=== PATIENT | male | born 1945 | race Caucasian/White ===

== ENCOUNTER 2019-10-21 08:17 | Observation (INO) | payer MEDICARE, BC ==
--- OUTSIDE RECORDS SUMMARY | 2019-10-21 08:27 | XMS REPORT | Summary of Care ---
:1945 Author Organization [facility] Address [address] [place] [address] Care Team Providers Name Role Phone Chaka Jain Primary Care Provider Reason for Referral Diagnostic Testing (Routine) Status Reason Specialty Diagnoses / Referred By Referred To Procedures Contact Contact Pending Review Diagnoses Paroxysmal atrial fibrillation (HCC) Chaka Jain Procedures ECHOCARDIOGRAM TTE [address] [place] [address] MRI/CAT/PET Scan (Routine) Status Reason Specialty Diagnoses / Procedures Referred By Contact Referred To Contact Closed Diagnoses Personal history of nicotine dependence Chaka Jain MD Procedures CT CHEST LUNG SCREENING [address] [place] [address] Reason for Visit Reason Comments Breathing Problem SOB for past couple weeks Back Pain Upper back pain chronic issue xrays negative; worse at night Dizziness periodically through out day Encounter Details Date Type Department Care Team Description 10/09/2019 Office Visit [facility] Chaka Jain MD Dyspnea, unspecified type (Primary Dx); Medicine 0 [facility] Personal history of nicotine dependence; [facility] [place] [address] Paroxysmal atrial fibrillation (HCC); [place] [address] High cholesterol [phone] Allergies Active Allergy Reactions Severity Noted Date Comments Rosuvastatin Calcium GI Reaction 10/26/2018 Ct Dye Other High 06/25/2018 allergy Iodine Anaphylaxis 12/16/2010 IONIC Penicillins Hives 09/27/2010 Prednisone GI Reaction 10/26/2018 Statins Musculoskeletal 11/21/2010 documented as of this encounter (statuses as of 10/11/2019) Medications Medication Sig Dispensed Refills Start Date End Date Status pantoprazole (PROTONIX) Take 1 Tab by 180 Tab 1 07/02/2012 Active 40 MG Oral Tab mouth TWO TIMES ECIndications: GERD DAILY BEFORE (gastroesophageal MEALS. reflux disease) Additional Information Patient taking differently: 40 mg Oral DAILY, Reported on 08/17/2015 4:57 PM rivaroxaban Take 20 mg by 0 Active (XARELTO) 20 MG Oral mouth DAILY. Tab flecainide Take 50 mg by 0 Active (TAMBOCOR) 50 MG mouth TWICE DAILY. Oral Tab Nebivolol HCl Take 1 Tab by 0 Active (BYSTOLIC) 10 MG mouth DAILY. Oral Tab amLodipine (NORVASC) Take 2.5 mg by 0 Active 2.5 MG Oral Tab mouth TWICE DAILY. HYDROcodone-acetamin Take 1 Tab by 28 Tab 0 07/16/20 Active ophen (NORCO) 5-325 mouth EVERY SIX 19 MG Oral Tab HOURS NEEDED (back pain). Max Daily Amount: 4 Tabs. tramadol (ULTRAM) 50 Take 1-2 Tabs by 56 Tab 0 07/30/20 Active MG Oral Tab mouth EVERY SIX 19 HOURS NEEDED (back pain). Max Daily Amount: 400 mg. docusate sodium Take 100 mg by 0 Active (COLACE) 100 MG Oral mouth. Cap rifaximin (XIFAXAN) 0 08/06/20 Active 550 MG Oral Tab 19 albuterol HFA Take 2 Puffs by 1 Inhaler 3 10/09/19 Active (VENTOLIN) 108 (90 inhalation EVERY 20 Base) MCG/ACT FOUR HOURS Inhalation Aero Soln NEEDED (dyspnea). azithromycin Take 2 pills on 6 Tab 0 07/16/20 10/09/19 Discontinued (ZITHROMAX Z-ROSI) the first day and (Patient stopped 250 MG Oral Tab 1 pill each day the medication) for 4 days doxycycline Take 100 mg by 20 Tab 0 07/17/20 10/09/19 Discontinued (VIBRAMYCIN) 100 MG mouth TWICE DAILY. (Patient stopped Oral Tab the medication) documented as of this encounter (statuses as of 10/11/2019) Active Problems Problem Noted Date Chronic atrial fibrillation 05/17/2018 Overview: Added automatically from request for surgery [id number] Unspecified essential hypertension GERD (gastroesophageal reflux disease) documented as of this encounter (statuses as of 10/11/2019) Immunizations Name Administration Dates Next Due Influenza (IM) Preservative Free 05/09/2012 Influenza Vaccine 65 Yrs + 05/25/2019 Influenza Vaccine High Dose 07/17/2018 PNEUMOCOCCAL POLYSACCHARIDE VACCINE 10/17/2017, 09/27/2010 Pneumococcal Conjugate(13 Valent) 08/17/2015 TDAP Vaccine 10/07/2019 ZOSTER (SHINGRIX) VACCINE 06/07/2019 ZOSTER (ZOSTAVAX) VACCINE 09/27/2010 documented as of this encounter Social History Tobacco Use Types Packs/Day Years Used Date Former Smoker Smokeless Tobacco: Never Used Alcohol Use Drinks/Week oz/Week Comments Not Currently 15 Standard drinks or equivalent 15.0 Sex Assigned at Date Recorded Not on file documented as of this encounter Last Filed Vital Signs Vital Sign Reading Time Taken Comments Blood Pressure 128/72 10/09/2019 3:59 PM EST Pulse 56 10/09/2019 3:59 PM EST Temperature - - Respiratory Rate - - Oxygen Saturation 97% 10/09/2019 3:59 PM EST Inhaled Oxygen Concentration - - Weight 87.1 kg (192 lb) 10/09/2019 3:59 PM EST Height - - Body Mass Index 27.55 07/16/2019 4:18 PM EST documented in this encounter Patient Instructions Patient InstructionsChaka Jain MD - 10/09/2019 3:30 PM ESTThe cause of your breathing symptoms is not clear. Lets check CT scan of the chest to rule out lung cancer, and try using albuterol inhaler as needed when dyspneic episodes occur at night, or in the day. Get labs done same day. (CBC, lipids ) We may need to repeat pulmonary function tests to explore this further. Try albuterol inhaler when breathing is compromised Another possibility may be acid reflux. Please read the antireflux measures you can take, listed below. I will try and get some information from Dr. Ch to find out about latest cardiac functional assessment. Proceed with getting another echocardiogram with Dr Ch. We'll address the upper back pain once the CT and echo are done. I expect I'll order an MRI. follow up after CT , echo and labs are done. Patient Education Acid Reflux and GERD in Adults Discharge Instructions About this topic GERD stands for gastroesophageal reflux disease. It is sometimes just called reflux. Normally, food goes from the mouth through the food pipe and then into the belly. The food pipe is also called the esophagus. This condition happens when the contents of the belly leak into the food pipe. This leakingcan irritate the food pipe. You may feel a burning pain in your chest called heartburn. You may haveburping, bloating, and belly pain after eating. GERD can be treated in many different ways. Sometimes, doctors use drugs or suggest changes in lifestyle. Other times, diet changes or surgery is needed. What care is needed at home? Ask your doctor what you need to do when you go home. Make sure you ask questions if you do notunderstand what the doctor says. This way you will know what you need to do. Maintain a healthy weight. Avoid stress. Avoid belts and clothes that are too tight. Eat small meals more often. Do not skip meals. Do not eat large meals to make up for missed meals. Avoid eating 2 to 3 hours before bedtime. Do not to lie down for at least 2 hours after eating. Raise the head of your bed 6 to 8 inches (15 to 20 cm). Use wooden blocks under the head of thebed. Just sleeping with your head raised on pillows is not enough. It can cause discomfort and make your signs worse. Do not drink beer, wine, and mixed drinks (alcohol). Do not smoke. What follow-up care is needed? Your doctor may ask you to make visits to the office to check on your progress. Be sure to keep these visits. What drugs may be needed? The doctor may order drugs to: Relieve heartburn Prevent reflux Lessen acid production Heal the esophageal lining Will physical activity be limited? Your physical activities will not be limited. What changes to diet are needed? Limit caffeine intake. Avoid eating oranges, berries, tomatoes, and other foods high in acid. Eat only small amounts of spicy, fatty, and fried foods, or avoid them altogether. Keep track of the foods that cause your signs to become worse. Avoid or limit these food items. What problems could happen? Asthma Precancerous changes in the food pipe Long-term cough Dental problems Higher risk of cancer of the food pipe. This is esophageal cancer. Narrowing of the food pipe. This is a stricture. Open sore in the food pipe. This is an ulcer. When do I need to call the doctor? Pain or a feeling of food getting stuck in your throat Frequent throwing up or throwing up fluid that looks like blood or coffee grounds Pain in the chest or upper part of the belly Very bad heartburn that lasts for a long time Cough, hoarseness of voice, or bad breath Wheezing, shortness of breath or other problems breathing Unintended weight loss or not wanting to eat You are not feeling better in 2 to 3 days or you are feeling worse Teach Back: Helping You Understand The Teach Back Method helps you understand the information we are giving you. The idea is simple. After talking with the staff, tell them in your own words what you were just told. This helps to make sure the staff has covered each thing clearly. It also helps to explain things that may have been a bit confusing. Before going home, make sure you are able to do these: I can tell you about my condition. I can tell you what changes I need to make with my eating habits to ease the reflux. I can tell you what I will do if I am throwing up fluid that looks like blood or coffee grounds. Where can I learn more? [employer] https://familydoctor.org/condition/refluxacid-reflux/ NHS Choices https://www.nhs.uk/conditions/ottdpaszi-jnt-tuvi-reflux/ Last Reviewed Date 2018-10-02 Consumer Information Use and Disclaimer This information is not specific medical advice and does not replace information you receive from your health care provider. This is only a brief summary of general information. It does NOT include allinformation about conditions, illnesses, injuries, tests, procedures, treatments, therapies, discharge instructions or life-style choices that may apply to you. You must talk with your health care provider for complete information about your health and treatment options. This information should not beused to decide whether or not to accept your health care provider?s advice, instructions or recommendations. Only your health care provider has the knowledge and training to provide advice that is right for you. Copyright Copyright 2019 [employer] and its affiliates and/or licensors. All rights reserved. documented in this encounter Progress Notes Chaka Jain MD - 10/09/2019 3:30 PM EST PATIENT: Omar Freeman : 1945 DATE OF SERVICE: 10/09/2019 CHIEF COMPLAINT: Chief Complaint Patient presents with ? Breathing Problem SOB for past couple weeks ? Back Pain Upper back pain chronic issue xrays negative; worse at night ? Dizziness periodically through out day Subjective HISTORY OF PRESENT ILLNESS: Omar Freeman is a 74-y.o. male. HPI Complains of paroxysms of dyspnea that occur at night when he is lying down. Not consistent every night. Not occurring with exertion or at other times during the day. Follows with Dr. Ch for cardiology switching to nebivolol from nadolol helped a little but symptoms are bad now. Does not haveorthopnea or ankle edema. We reviewed outside records where he had a prior echocardiogram in 2011 with [facility] showing mild concentric LVH, global LV wall motion and contractility within normal limits with ejection fraction 55-60%, trace of aortic regurgitation, mild mitral regurgitation andmild tricuspid regurgitation. We agreed that perhaps he needs an updated study and we will ask Dr. Ch for this. States he recently had a CT of the abdomen and pelvis ordered by Dr. Franchesca Sawyer to evaluate right lower quadrant pain, and the CT showed no evidence of acute abdominal or pelvic abnormality. There was diverticulosis and evidence of prior lumbar spine surgery with posterior spinal fusion at L4-5 level with pedicle screws. Reviewed a prior upper GI study ordered by gastroenterology nurse practitioner. Kyaw done in July 2018 showing a large amount of free gastroesophageal reflux. Has been a previous smoker, and states he had normal PFT's done several years ago. Prior low-dose CTof the lungs done for lung cancer screening in November 2015 ordered by his prior primary care doctor Lloyd Ford MD showed a 2 mm calcification in the periphery of the lingula. Follow-up studies were never done and patient states he was never told to have a follow-up study Also complains of an unusual type of upper back pain. Not sure if it is truly mechanical or not. Seems to be noticeable when he is dyspneic. He is worried about cancer. X-rays of the thoracic spine done in March 2019 showed no evidence of fracture or subluxation but some endplate changes seen without evidence of compression deformity. Past Medical History: Diagnosis Date ? Adenomatous polyp of colon 2011 3 years. 205 10 year but 2017 3 years? Ankle fracture ? Chronic sore throat Susanna ? CTS (carpal tunnel syndrome) ? Fatty liver ultrasound [facility] ? GERD (gastroesophageal reflux disease) 2010 EGD negative ? Headache(784.0) tension per Dr Michael ? Hiatal hernia ? IBS (irritable bowel syndrome) ? Lumbar herniated disc s/p hemilaminectomy right L4-5 2005 and lumbar fusion 2007 ? Mast cell disease, systemic ??? no more .sx ? Migraine Dr Holm ? PAF (paroxysmal atrial fibrillation) (HCC) ? PVC's (premature ventricular contractions) improved with K and BP meds ? 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 Unspecified essential hypertension Family History Problem Relation Age of Onset ? Colon Cancer Father ? Heart Mother 60s Current Outpatient Medications Medication Sig ? amLodipine (NORVASC) 2.5 MG Oral Tab Take 2.5 mg by mouth TWICE DAILY. ? docusate sodium (COLACE) 100 MG Oral Cap Take 100 mg by mouth. ? flecainide (TAMBOCOR) 50 MG Oral Tab Take 50 mg by mouth TWICE DAILY. ? HYDROcodone-acetaminophen (NORCO) 5-325 MG Oral Tab Take 1 Tab by mouth EVERY SIX HOURS NEEDED (back pain). Max Daily Amount: 4 Tabs. ? Nebivolol HCl (BYSTOLIC) 10 MG Oral Tab Take 1 Tab by mouth DAILY. ? pantoprazole (PROTONIX) 40 MG Oral Tab EC Take 1 Tab by mouth TWO TIMES DAILY BEFORE MEALS.(Patient taking differently: Take 40 mg by mouth DAILY. ) ? rifaximin (XIFAXAN) 550 MG Oral Tab ? rivaroxaban (XARELTO) 20 MG Oral Tab Take 20 mg by mouth DAILY. ? tramadol (ULTRAM) 50 MG Oral Tab Take 1-2 Tabs by mouth EVERY SIX HOURS NEEDED (back pain). Max Daily Amount: 400 mg. No current facility-administered medications for this visit. Allergies Allergen Reactions ? Ct Dye Other allergy ? Crestor [Rosuvastatin Calcium] GI Reaction ? Iodine Anaphylaxis IONIC ? Pcn [Penicillins] Hives ? Prednisone GI Reaction ? Statins Musculoskeletal Social History Socioeconomic History ? Marital status: Spouse name: Not on file ? Number of children: Not on file ? Years of education: Not on file ? Highest education level: Not on file Occupational History ? Not on file Social Needs ? Financial resource strain: Not on file ? Food insecurity Worry: Not on file Inability: Not on file ? Transportation needs Medical: Not on file Non-medical: Not on file Tobacco Use ? Smoking status: Former Smoker ? Smokeless tobacco: Never Used Substance and Sexual Activity ? Alcohol use: Not Currently Alcohol/week: 15.0 standard drinks Types: 15 Standard drinks or equivalent per week ? Drug use: Not on file ? Sexual activity: Not on file Lifestyle ? Physical activity Days per week: Not on file Minutes per session: Not on file ? Stress: Not on file Relationships ? Social connections Talks on phone: Not on file Gets together: Not on file Attends gnosticist service: Not on file Active member of club or organization: Not on file Attends meetings of clubs or organizations: Not on file Relationship status: Not on file ? Intimate partner violence Fear of current or ex partner: Not on file Emotionally abused: Not on file Physically abused: Not on file Forced sexual activity: Not on file Other Topics Concern ? 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 REVIEW OF SYSTEMS: Review of Systems Respiratory: Positive for shortness of breath. Cardiovascular: Negative for chest pain and palpitations. Gastrointestinal: Negative for abdominal pain. Genitourinary: Negative for dysuria. Musculoskeletal: Positive for back pain. Objective PHYSICAL EXAM: VITALS: BP 128/72 (BP Location: Left arm, Patient Position: Sitting) | Pulse 56 | Wt 192 lb (87.1kg) | SpO2 97% | BMI 27.55 kg/m Body mass index is 27.55 kg/m. Physical Exam Alert, oriented, in no acute distress. Vitals as above. HEENT: Normocephalic, atraumatic. WAI, EOMI. Mouth and ears unremarkable. Neck: No palpable lymphadenopathy in the submandibular, submental, anterior cervical, posterior cervical, or occipital chains, nor in the supraclavicular spaces. No JVD, thyromegaly. LUNGS: clear. HEART: Regular rate and rhythm. ABDOMEN: positive bowel sounds, soft, nontender, no hepatosplenomegaly, masses or bruits. EXTREMITIES: no cyanosis, clubbing, or edema. ASSESSMENT / IMPRESSION: ICD-9-CM ICD-10-CM 1. Dyspnea, unspecified type? unclear cause. Possibly paroxysmal atrial fib, or manifestationof sleep apnea, or gastroesophageal reflux 786.09 R06.00 CBC WITH DIFFERENTIAL 2. Personal history of nicotine dependence?check another low-dose CT scan of the chest Z87.891Z87.891 CT CHEST LUNG SCREENING 3. Paroxysmal atrial fibrillation (HCC)?recheck echocardiogram 427.31 I48.0 ECHOCARDIOGRAM TTE LIPID PROFILE 4. High cholesterol - The patient is asked to improve diet and exercise patterns to aid in medical management of this. 272.0 E78.00 LIPID PROFILE 5. History of gastroesophageal reflux on prior upper GI study? proceed with antireflux measures?continue pantoprazole 6. Upper back pain?unclear etiology. May need imaging of the thoracic spine with MRI butlets see what the CT of the chest shows first. Patient Instructions The cause of your breathing symptoms is not clear. Lets check CT scan of the chest to rule out lung cancer, and try using albuterol inhaler as needed when dyspneic episodes occur at night, or in the day. Get labs done same day. (CBC, lipids ) We may need to repeat pulmonary function tests to explore this further. Try albuterol inhaler when breathing is compromised Another possibility may be acid reflux. Please read the antireflux measures you can take, listed below. I will try and get some information from Dr. Ch to find out about latest cardiac functional assessment. Proceed with getting another echocardiogram with Dr Ch. We'll address the upper back pain once the CT and echo are done. I expect I'll order an MRI. follow up after CT , echo and labs are done. Patient Education Acid Reflux and GERD in Adults Discharge Instructions About this topic GERD stands for gastroesophageal reflux disease. It is sometimes just called reflux. Normally, food goes from the mouth through the food pipe and then into the belly. The food pipe is also called the esophagus. This condition happens when the contents of the belly leak into the food pipe. This leakingcan irritate the food pipe. You may feel a burning pain in your chest called heartburn. You may haveburping, bloating, and belly pain after eating. GERD can be treated in many different ways. Sometimes, doctors use drugs or suggest changes in lifestyle. Other times, diet changes or surgery is needed. What care is needed at home? Ask your doctor what you need to do when you go home. Make sure you ask questions if you do notunderstand what the doctor says. This way you will know what you need to do. Maintain a healthy weight. Avoid stress. Avoid belts and clothes that are too tight. Eat small meals more often. Do not skip meals. Do not eat large meals to make up for missed meals. Avoid eating 2 to 3 hours before bedtime. Do not to lie down for at least 2 hours after eating. Raise the head of your bed 6 to 8 inches (15 to 20 cm). Use wooden blocks under the head of thebed. Just sleeping with your head raised on pillows is not enough. It can cause discomfort and make your signs worse. Do not drink beer, wine, and mixed drinks (alcohol). Do not smoke. What follow-up care is needed? Your doctor may ask you to make visits to the office to check on your progress. Be sure to keep these visits. What drugs may be needed? The doctor may order drugs to: Relieve heartburn Prevent reflux Lessen acid production Heal the esophageal lining Will physical activity be limited? Your physical activities will not be limited. What changes to diet are needed? Limit caffeine intake. Avoid eating oranges, berries, tomatoes, and other foods high in acid. Eat only small amounts of spicy, fatty, and fried foods, or avoid them altogether. Keep track of the foods that cause your signs to become worse. Avoid or limit these food items. What problems could happen? Asthma Precancerous changes in the food pipe Long-term cough Dental problems Higher risk of cancer of the food pipe. This is esophageal cancer. Narrowing of the food pipe. This is a stricture. Open sore in the food pipe. This is an ulcer. When do I need to call the doctor? Pain or a feeling of food getting stuck in your throat Frequent throwing up or throwing up fluid that looks like blood or coffee grounds Pain in the chest or upper part of the belly Very bad heartburn that lasts for a long time Cough, hoarseness of voice, or bad breath Wheezing, shortness of breath or other problems breathing Unintended weight loss or not wanting to eat You are not feeling better in 2 to 3 days or you are feeling worse Teach Back: Helping You Understand The Teach Back Method helps you understand the information we are giving you. The idea is simple. After talking with the staff, tell them in your own words what you were just told. This helps to make sure the staff has covered each thing clearly. It also helps to explain things that may have been a bit confusing. Before going home, make sure you are able to do these: I can tell you about my condition. I can tell you what changes I need to make with my eating habits to ease the reflux. I can tell you what I will do if I am throwing up fluid that looks like blood or coffee grounds. Where can I learn more? [employer] https://familydoctor.org/condition/refluxacid-reflux/ NHS Choices https://www.nhs.uk/conditions/drmhzkujt-rss-qnjx-reflux/ Last Reviewed Date 2018-10-02 Consumer Information Use and Disclaimer This information is not specific medical advice and does not replace information you receive from your health care provider. This is only a brief summary of general information. It does NOT include allinformation about conditions, illnesses, injuries, tests, procedures, treatments, therapies, discharge instructions or life-style choices that may apply to you. You must talk with your health care provider for complete information about your health and treatment options. This information should not beused to decide whether or not to accept your health care provider?s advice, instructions or recommendations. Only your health care provider has the knowledge and training to provide advice that is right for you. Copyright Copyright 2019 [employer] and its affiliates and/or licensors. All rights reserved. CC: Dr. Ch, Dr. Callaway author: Chaka Jain MD 10/09/2019 16:26 documented in this encounter Plan of Treatment Name Type Priority Associated Diagnoses Date/Time CT CHEST LUNG SCREENING Imaging Routine Personal history of 10/10/2019 10: 19 AM nicotine dependence EST Name Type Priority Associated Diagnoses Order Schedule CT CHEST LUNG SCREENING Imaging Routine Personal history of Expected: nicotine dependence 10/09/2019, Expires: 10/08/2020 ECHOCARDIOGRAM TTE CV Lab Routine Paroxysmal atrial Expected: fibrillation (HCC) 10/09/2019, Expires: 11/12/2020 Health Maintenance Due Date Last Done Comments MEDICARE ANNUAL WELLNESS VISIT 1945 HIV SCREENING 1961 ZOSTER IMMUNIZATION SERIES (3 08/02/2019 06/07/2019, of 3) 09/27/2010 DEPRESSION SCREENING 10/16/2019 10/16/2018 Colonoscopy 10/17/2019 10/17/2016, 12/06/2010 FALL RISK ASSESSMENT 10/17/2019 10/17/2018, 10/17/2018 LIPID DISORDER SCREENING 10/10/2020 10/10/2019, 04/03/2019 DTaP/Tdap/Td Vaccines (2 - 10/07/2029 10/07/2019 Tdap) PNEUMOCOCCAL 65+YRS Completed 10/17/2017, 08/17/2015, 09/27/2010 AAA SCREENING/SURVEILLANCE Completed 08/30/2018, 12/16/2010 INFLUENZA VACCINE Completed 05/25/2019, 07/17/2018, 05/09/2012 HEPATITIS A IMMUNIZATION Aged Out No longer eligible based SERIES on patient's age to complete this topic HPV IMMUNIZATION SERIES Aged Out No longer eligible based on patient's age to complete this topic MENINGOCOCCAL VACCINE IMM Aged Out No longer eligible based on patient's age to complete this topic documented as of this encounter Goals Goal Patient Goal Associated Recent Patient-Stated? Author Type Problems Progress Blood Pressure Blood Pressure 128/72 No [place], < 150/90 (10/09/2019 DANIEL Infante 3:59 PM EST) Note: This is an individualized treatment (blood pressure) goal for Omar Ami Freeman: Displayed above (on the left) is your goal for blood pressure control. Your most recent blood pressure is also shown above, on the right. You should try to achieve blood pressures that are lower than your goal listed above (on the left). Take all prescribed medications as Self-management Arelis Crawford FNP directed Note: This is an individualized self-management goal for Omar Ami Lydia: Please take all prescribed medications as directed. 1. Do not skip doses. If you cannot afford your medications, talk with your doctor. 2. Use a pill reminder system such as a pill box if needed. Your pharmacist can help you with this. 3. Contact your Pharmacy 5 days before your medication runs out. If you cannot take your medications for any reasons, talk with your doctor. 4. Please bring all of your medication bottles and inhalers (or a list of all your medications/inhalers) with you to every visit. Potential barriers to meeting all of your care plan goals will continue to be addressed on an ongoing basis. documented as of this encounter Procedures Procedure Name Priority Date/Time Associated Diagnosis Comments CBC WITH DIFFERENTIAL Routine 10/10/2019 10:07 Dyspnea, unspecified Results for this AM EST type procedure are in the results section. documented in this encounter Results LIPID PROFILE (10/10/2019 10:07 AM EST) Cholesterol 186 <200 mg/dl [facility] HDL Cholesterol 32 (L) >40 mg/dl [facility] Triglycerides 112 <150 mg/dl [facility] LDL Cholesterol 132 (H) <100 MG/DL [facility] Cholesterol / HDL Ratio 5.8 RATIO [facility] LDL / HDL Ratio 4.1 [facility] Non-HDL Cholesterol 154 (H) 0 - 130 MG/DL [facility] Patient Fasting: Yes [facility] Specimen Blood - Blood specimen (specimen) Performing Organization Address City/State/Zipcode Phone Number [facility] [address] [place] [address] [phone] CBC WITH DIFFERENTIAL (10/10/2019 10:07 AM EST) WBC Count 6.15 4.23 - 9.07 K/uL [facility] RBC Count 4.40 4.30 - 5.89 M/UL [facility] Hemoglobin 13.8 13.7 - 17.5 g/dL [facility] Hematocrit 41.9 40.1 - 51.0 % [facility] MCV 95.2 (H) 79.0 - 92.2 FL [facility] MCH 31.4 25.7 - 32.2 PG [facility] MCHC 32.9 32.3 - 36.5 g/dL [facility] Platelet Count 236 163 - 337 K/uL [facility] MPV 10.7 9.4 - 12.4 FL [facility] RDW 12.3 11.6 - 14.4 % [facility] Neutrophil % 45.4 34.0 - 67.9 % [facility] Lymphocyte % 39.7 21.8 - 53.1 % [facility] Monocyte % 8.8 5.3 - 12.2 % [facility] Eosinophil % 4.7 0.8 - 7.0 % [facility] Basophil % 1.1 0.2 - 1.2 % [facility] nRBC % 0.0 0.0 - 0.2 % [facility] Neutrophil # 2.79 1.78 - 5.38 K/UL [facility] Lymphocyte # 2.44 1.32 - 3.57 K/UL [facility] Monocyte # 0.54 0.30 - 0.82 K/UL [facility] Eosinophil # 0.29 0.04 - 0.54 K/UL [facility] Basophil # 0.07 0.01 - 0.08 K/UL [facility] Immature Gran % 0.3 0.0 - 0.4 % [facility] Immature Gran # 0.02 0.00 - 0.03 K/uL [facility] NRBC # 0.00 0.00 - 0.12 K/uL [facility] Specimen Blood - Blood specimen (specimen) Performing Organization Address City/State[facility] Phone Number [facility] [address] [place] [id number] documented in this encounter Visit Diagnoses Diagnosis Personal history of nicotine dependence Dyspnea, unspecified type Paroxysmal atrial fibrillation (HCC) Atrial fibrillation High cholesterol Pure hypercholesterolemia documented in this encounter documented as of this encounter"
--- NOTE | 2019-10-21 08:44 | ED ---
Shortness of Breath - HPI Summary HPI Summary: Patient is a 74 y/o M presenting to the ED for a chief complaint of shortness of breath and left-sided back pain for the last few weeks. He notes a warm sensation in his face and lightheadedness before having a feeling that he will have a syncopal episode. No aggravating or alleviating factors are reported. Patient states the back pain initially began in March 2019 and had imaging performed that showed arthritis. Recently, patient also notes having an abdominal CT for abdominal pain. He has been seen at [facility] and told to be seen at [facility]. Patient states he has had an extensive cardiac workup, including an echocardiogram and a chest CT with Dr. Ch. He reports having a syncopal episode during the echocardiogram. PMHx is significant for IBS and atrial fibrillation for which he takes Xarelto. PSHx is significant for spinal fusion. - History of Current Complaint Chief Complaint: EDShortnessOfBreath Time Seen by Provider: 10/21/19 08:29 Hx Obtained From: Patient Onset/Duration: Sudden Onset, Still Present Timing: Constant Current Severity: Moderate Dyspnea At: Rest Aggravating Factors: Nothing Alleviating Factors: Nothing - Allergy/Home Medications Allergies/Adverse Reactions: Allergies Allergy/AdvReac Type Severity Reaction Status Date / Time Iodinated Contrast Media Allergy Anaphylatic Verified 10/21/19 08:49 Shock iodine Allergy Anaphylatic Verified 10/21/19 08:49 Shock Penicillins Allergy Anaphylatic Verified 10/21/19 08:49 Shock Home Medications: Home Medications Amlodipine Besylate [Amlodipine 2.5 mg tab] 2.5 mg PO BID 09/23/19 [History Confirmed 10/21/19] Dicyclomine CAP* [Bentyl CAP*] 10 mg PO Q8H PRN 09/23/19 [History Confirmed ] Flecainide TAB* [Tambocor TAB*] 50 mg PO BID 09/23/19 [History Confirmed ] Nebivolol HCl [Bystolic] 10 mg PO DAILY 09/23/19 [History Confirmed 10/21/19] Pantoprazole TAB * [Protonix TAB*] 40 mg PO DAILY 09/23/19 [History Confirmed ] Rivaroxaban TAB(*) [Xarelto 20 mg] 20 mg PO DAILY 09/23/19 [History Confirmed ] traMADol TAB* [Ultram*] 50 mg PO Q6HR PRN 09/23/19 [History Confirmed 10/21/19] PMH/Surg Hx/FS Hx/Imm Hx Previously Healthy: Yes Endocrine/Hematology History: Denies: Hx Diabetes Cardiovascular History: Reports: Hx Atrial Fibrillation, Hx Hypercholesterolemia , Hx Hypertension - ON MEDS, Other Cardiovascular Problems/Disorders - NEG CARDIAC CATH Denies: Hx Pacemaker/ICD Respiratory History: Reports: Hx Chronic Obstructive Pulmonary Disease (COPD) Denies: Other Respiratory Problems/Disorders GI History: Reports: Hx Gastroesophageal Reflux Disease, Hx Hiatal Hernia, Hx Irritable Bowel, Other GI Disorders History: Denies: Hx Renal Disease Musculoskeletal History: Reports: Hx Arthritis - KNEES, Other Musculoskeletal History Sensory History: Reports: Hx Cataracts - RIGHT EYE, Hx Contacts or Glasses - CONTACTS Denies: Hx Legally Blind, Hx Deafness, Hx Hearing Aid Opthamlomology History: Reports: Hx Cataracts - RIGHT EYE, Hx Contacts or Glasses - CONTACTS Denies: Hx Legally Blind EENT History: Denies: Hx Deafness Neurological History: Reports: Hx Headaches - SEE NEUROLOGIST Psychiatric History: Denies: Hx Panic Disorder - Surgical History Surgical History: Yes Surgery Procedure, Year, and Place: back fusion;, 2007, [place]. back surgery - L4-L5 -W/RODs;. knees- BILATERAL - MCL, 2009, 2010. left carpal tunnel,2004 , [place]. Lt ULNAR RELEASE/Lt ELBOW; 2006, [facility]. inguinal hernia syr roberta 1970es. [facility] ING HERNIA, 1966. Hx Anesthesia Reactions: No Infectious Disease History: No Infectious Disease History: Denies: Traveled Outside the [place] in Last 30 Days - Family History Known Family History: Negative: Cardiac Disease - Social History Occupation: Retired Lives: With Family Alcohol Use: Daily Alcohol Amount: 2-3 PER DAY Hx Substance Use: No Substance Use Type: Reports: None Hx Tobacco Use: Yes Smoking Status (MU): Former Smoker Type: Cigarettes Amount Used/How Often: PACK A DAY Have You Smoked in the Last Year: No Review of Systems Positive: Shortness Of Breath Positive: Myalgia - Left-sided back Neurological/Mental Status: Other - Positive lightheadedness and pre-syncope Positive: Syncope - Resolved, during an echocardiogram All Other Systems Reviewed And Are Negative: Yes Physical Exam - Summary Physical Exam Summary: Constitutional: Well-developed, Well-nourished, Alert. (-) Distressed Skin: Warm, Dry HENT: Normocephalic; Atraumatic Eyes: Conjunctiva normal Neck: Musculoskeletal ROM normal neck. (-) JVD, (-) Stridor, (-) Nuchal rigidity Cardio: Rhythm regular, rate normal, Heart sounds normal; Intact distal pulses; Radial pulses are 2+ and symmetric. (-) Murmur Pulmonary/Chest wall: (-) Respiratory distress, (-) Wheezes, (-) Rales. Tachypnea Abd: Soft, (-) tenderness, (-) Distension, (-) Guarding, (-) Rebound Musculoskeletal: (-) Edema Lymph: (-) Cervical adenopathy Neuro: Alert, Oriented x3 Psych: Mood and affect Normal Triage Information Reviewed: Yes Vital Signs On Initial Exam: Initial Vitals Temp Pulse Resp BP Pulse Ox 97.2 F 65 19 148/77 100 10/21/19 08:26 10/21/19 08:26 10/21/19 08:26 10/21/19 08:26 10/21/19 08:26 Vital Signs Reviewed: Yes Procedures - Sedation Patient Received Moderate/Deep Sedation with Procedure: No Diagnostics - Vital Signs Vital Signs Temp Pulse Resp BP Pulse Ox 10/21/19 08:26 97.2 F 65 19 148/77 100 - Laboratory Result Diagrams: 10/21/19 08:36 10/21/19 08:36 Lab Statement: Any lab studies that have been ordered have been reviewed, and results considered in the medical decision making process. - Radiology Chest X-ray Radiology Interpretation Completed By: Radiologist Summary of Radiographic Findings: Chest X-ray IMPRESSION: No active cardiopulmonary disease is noted. Reviewed by Dr. Altman. - EKG 08:21 Cardiac Rate: NL - 73 BPM EKG Rhythm: Sinus Rhythm ST Segment: Normal Ectopy: None EKG Comparison: No Significant Change - From prior Summary of EKG Findings: An EKG at 08:21 reveals normal sinus rhythm with 73 BPM , RBBB, left fascicular block, nml axis, nml intervals. No STEMI. No acute changes. Compared to a prior EKG, no significant change. ED physician has reviewed and interpreted this EKG. Re-Evaluation - Re-Evaluation First Eval Re-Evaluation Time: 09:13 Change: Unchanged Comment: At 09:13, patient denies a history of blood clots. Course/Dx - Course Course Of Treatment: 74 y/o male p/w progressive YUN and syncopal events. - patient reports feeling unwell, denies chest pain. Chest x-ray without acute abnormality. EKG unremarkable. Troponin negative. D-dimer normal, well's low risk. - Syncope. DDx: Seizure: no witnessed seizure activity, incontinence or h/o seizures to suggest seizure today. Hypoxia and hypoglycemia less likely in this patient with normal sats and BG. Cardiac issue: electrical ( dysarrhythmias, brugada, WPW, long QT). No man EKG. Troponin negative, recent echo Dr. Ch's office. I still think patient will benefit from telemetry and further workup. Vessels: PE, dissection, AAA. Clinical picture inconsistent , no abd pain, no pulsatile mass, symmetric pulses, PE: d dimer normal. Volume issue: dehydration from vomiting/diarrhea/decreased PO, sepsis, GI bleed, ruptured ectopic or bleeding AAA. No signs of recent illness to suggest infection, no e/o anemia by history or PE. Neuro: No DOUGLAS, no personal or family h/o cerebral aneurysm, nml neuro exam but does report some dizziness on standing. Also: vasovagal, drugs/meds, autonomic insufficiency - Diagnoses Provider Diagnoses: Shortness of breath, Near syncope - Physician Notifications Discussed Care of Patient With: Cristal Fine - At 09:15, Dr. Cristal Fine will send someone down to assess the patient. He will likely be discharged and have an appointment set up with a breaker unit assembler. At 10:20, Dr. Cristal Fine reviewed the patients case and agrees to admit the [place] [facility] [place] diagnosis of shortness of breath and near syncope. Time Discussed With Above Provider: 09:15 Instructed by Provider To: Admit As Inpatient Discharge ED - Sign-Out/Discharge Documenting (check all that apply): Patient Departure - Admit - Discharge Plan Condition: Stable Disposition: ADMITTED TO [facility] - Billing Disposition and Condition Condition: STABLE Disposition: Admitted to [facility] - Attestation Statements Document Initiated by Scribe: Yes Documenting Scribe: Angela Mcallister Provider For Whom Scribe is Documenting (Include Credential): Viral Altman MD Scribe Attestation: I, Angela Mcallister, scribed for Viral Altman MD on 10/21/19 at 1821. Scribe Documentation Reviewed: Yes Provider Attestation: The documentation as recorded by the Angela kulkarni accurately reflects the service I personally performed and the decisions made by me, Viral Altman MD Status of Scribe Document: Viewed
[2019-10-21 08:47] LABS: ABS Basophils 0.1 10^3/ul (0-0.2); ABS Eosinophils 0.2 10^3/ul (0-0.6); ABS Lymphocytes 1.4 10^3/ul (1.0-4.8); ABS Monocytes 0.5 10^3/ul (0-0.8); ABS Neutrophils 4.9 10^3/ul (1.5-7.7); Eosinophil % 2.5 %; Hematocrit 40 % (42-52); Hemoglobin 13.8 g/dL (14.0-18.0); Lymphocyte % 19.5 %; Mean Corpuscular HGB Conc 34 g/dL (31-36); Mean Corpuscular Hemoglobin 32 pg (27-31); Mean Corpuscular Volume 93 fL (80-94); Mean Platelet Volume 8.4 fL (7.4-10.4); Nucleated Red Blood Cells % 0.1; Platelet Count 202 10^3/uL (150-450); Red Blood Count 4.34 10^6 /uL (4.18-5.48); Red Cell Distribution Width 13 % (10-15)
[2019-10-21 09:10] LABS: Albumin/Globulin Ratio 1.5 (1-3); BUN/Creatinine Ratio 15.7 (8-20); Calcium 9.3 mg/dL (8.6-10.3); EGFR African American 75.4 (>60); EGFR Non-African American 62.3 (>60); Globulin 2.7 g/dL (2-4); Potassium 3.9 mmol/L (3.5-5.0); Total Bilirubin 0.7 mg/dL (0.2-1.0); Total Protein 6.7 g/dL (6.4-8.9)
[2019-10-21] MEDS ORDERED: Nitroglycerin TAB 0.4 MG* 0.4 MG TAB SL PRN (10:15)
[2019-10-21] MEDS ORDERED: Ondansetron INJ* 2 MG/ML VIAL IV PRN (10:15)
[2019-10-21] MEDS ORDERED: Dicyclomine CAP* 10 MG PO PRN (10:20)
[2019-10-21 10:23] LABS: TSH (Thyroid Stimulating Horm) 3.06 mcIU/mL (0.34-5.60)
[2019-10-21] MEDS: traMADol TAB* 50 MG PO PRN (11:48)
[2019-10-21] MEDS: NS 0.9% 1000 ML** 1,000 ML IV SCH ×2 (11:48→19:45)
--- NOTE | 2019-10-21 13:19 | HP ---
CC: Dr. Chaka Jain; Dr. Isabel Ch * ADMISSION HISTORY AND PHYSICAL: DATE OF ADMISSION: 10/21/19 PRIMARY CARE PROVIDER: Dr. Chaka Jain. MY ATTENDING WHILE IN THE HOSPITAL: Dr. Cristal Fine.* (DICTATED BY DAVID JIMENEZ) OUTPATIENT LOG SKIDDER: Dr. Isabel Ch. CHIEF COMPLAINT: Shortness of breath intermittently times several weeks. HISTORY OF PRESENT ILLNESS: Mr. Freeman is a 74-year-old male with past medical history significant for paroxysmal atrial fibrillation, reflux, hypertension, low back pain, who presented to the emergency department after several weeks of intermittent shortness of breath, not brought on by exertion, not occurring at predictable time of day, not associated with meals, not associated with certain body positions, it comes and goes, but has been getting progressively worse. The patient does walk and this does not make his shortness of breath worse, but he is quite limited by his back pain, so does not exercise very frequently or very strenuously. The patient has no associated chest pain, but has had at least 2 episodes of syncope, most recent one being this morning where he feels the sensation going up from his chest into his neck and then he passes out. The patient denies any palpitations or overt chest pain with this and he does not feel particularly that his shortness of breath gets worse when these episodes occur. The patient denies nausea or vomiting with these episodes. The patient had an episode of severe, what he described, as reflux several days ago, which responded eventually to high doses of pantoprazole and Gaviscon. The patient has had a previous chest CT, which was negative except for small pulmonary nodules. The patient has been having dizziness, which he does not describe as occurring when he stands up, mainly just a general ooziness what he would describe as ataxia, even this is particularly worse with looking to his right without overt vertigo and has been getting worse for several weeks as well. The patient also has a headache that has become relatively chronic. He does not take Tylenol for it and when he takes tramadol for it it has not particularly helped, nothing makes this particularly better or worse. There is no photophobia, no phonophobia. He states it is often on the top of his head, but occasionally is around his eyes, is not associated with nausea and vomiting. He did have a history of chronic headaches that was eventually attributed to poor exhaust on a heater in his office and resolved after he was not exposed to this anymore, but during the evaluation of that he did have an MRI of the brain, which showed a small cavernous angioma and scattered small foci of elevated T2 and FLAIR signal and periventricular and subcortical white matter. The patient has had no other weakness or focal deficits. The patient does have a history of vertigo according to the MRI of the brain from 2006, which was also negative. The patient denies any fevers or chills. The patient states he has a stress test, but not recentlyp[atient also had a cardiac catheterization in 2010, which was relatively normal as well. The patient has recent abdominal and pelvis CT which was negative. The patient complains of pain in his back, which is aching generally on the right side and at the lower ribs, worse with movement without any correlating symptoms on imaging either on his chest CT or his abdomen and pelvis CT or on plain films from his primary. The patient does not feel dehydrated. The patient has no history of shingles and has been vaccinated against this. The patient has had in the past occasional chest pain for which he has had a stress test, but again not recently. The patient again does not have chest pain associated with his shortness of breath. In the emergency department, the patient has relatively normal lab work showing only slight anemia, negative D-dimer. The patient has no recent immobilization or long car trips. Nonischemic EKG, normal 2 views chest x-ray, but due to concern for the patient's significant dyspnea as well as various other complaints. We were asked to evaluate the patient for admission to the hospital. PAST MEDICAL HISTORY: Hypertension, paroxysmal atrial fibrillation, GERD, lower back pain, history of systemic mastocytosis resolved, IBS. PAST SURGICAL HISTORY: Lumbar diskectomy in 2005, lumbar fusion in 2007, skin cancer removal in 2016. MEDICATIONS: 1. Pantoprazole 40 mg p.o. daily. 2. Amlodipine 2.5 mg p.o. b.i.d. 3. Bystolic 10 mg p.o. daily. 4. Xarelto 20 mg p.o. daily. 5. Dicyclomine 10 mg p.o. q.8 hours as needed. 6. Tramadol 50 mg p.o. q.6 hours as needed. 7. Flecainide 50 mg p.o. b.i.d. ALLERGIES: IODINATED CONTRAST MEDIA, PENICILLINS. Of note, the patient's PENICILLIN allergy is based on report of reaction when he was 9 years old. FAMILY HISTORY: The patient's mother of a CVA, from AFib. The patient's father of questionable metastatic squamous cell cancer. The patient has a sister who has Parkinson's and 2 other siblings were healthy. SOCIAL HISTORY: The patient smoked for approximately 50 years, quitting 3 years ago when he was 71 years old. The patient drinks occasional alcohol, but this is very infrequent as it does tend to provoke his AFib. The patient denies illicit drug use. 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 The patient is and has 4 children. The patient's surrogate decision maker will be his , Maylin Freeman. REVIEW OF SYSTEMS: A 10-point review of systems was reviewed and is negative, except as above in the HPI. PHYSICAL EXAMINATION GENERAL: The patient is a 74-year-old male who appears younger than stated age and sitting in the bed with slightly increased work of breathing. VITAL SIGNS: At the time of evaluation, temperature 97.2, pulse rate 60, respiratory rate 23, oxygen saturation 99% on room air, blood pressure 138/84. HEENT: Head: Normocephalic, atraumatic. Sclerae anicteric. No conjunctival injection. Nasal mucosa moist. Oral mucosa moist. No pharyngeal erythema, discharge, or exudate. NECK: Supple, nontender. No lymphadenopathy. No carotid bruits auscultated. No JVD. RESPIRATORY: Clear to auscultation bilaterally. No wheezes, rales, or rhonchi. Good air exchange bilaterally. CARDIAC: Regular rate and rhythm. No clicks, murmurs, gallops, or rubs. Pulses 2+ in the dorsalis pedis, posterior tibialis and radial areas. ABDOMEN: Soft, nontender, nondistended. Bowel sounds present and normoactive in all 4 quadrants. Slight tenderness to palpation with deep right upper quadrant palpation. GENITOURINARY: No suprapubic or CVA tenderness. NEURO: Cranial nerves II through XII intact. No focal deficits. The patient walks with a slow steady gait. The patient was unable to stand long enough to perform Romberg. SKIN: Clean, dry, and intact. No rash. DIAGNOSTIC STUDIES/LAB DATA: Chest x-ray read as no active cardiopulmonary disease. Electrocardiogram shows right bundle branch block. No ST segment elevation or depression. No hypertrophy or enlargement. Left axis deviation. Compared to previous exam, there is no significant change. White blood cell count 7.0, hemoglobin 13.8, platelet count 202. , D-dimer less than 200. Sodium 137, potassium 3.9, chloride 106, carbon dioxide 23, anion gap 8, BUN 18, creatinine 1.15, glucose 107, lactic acid 2.0, calcium 9.3, magnesium 2.0. Bilirubin 0.7, AST 13, ALT 9, alkaline phosphatase 55. Troponin I 0.00. BNP 88, protein 6.7, albumin 4.0, globulin 2.7, TSH 3.06. ASSESSMENT AND PLAN: Mr. Freeman is a 74-year-old male with past medical history significant for hypertension, paroxysmal atrial fibrillation, reflux, and chronic back pain, who presents to the emergency department with several months of on and off dyspnea, not associated with exertion who has been undergoing a significant workup and has not had any significant positive results to this time. The patient at this point feels as if his symptoms are escalating and has had episode of syncope. The patient admitted to the hospital for ongoing evaluation and cardiac stress test. 1. Dyspnea, syncope, possible chest pain. The patient had an episode several days ago of chest pain, which he attributed to reflux, but could have been cardiac in nature. The patient's shortness of breath also could be related to an atypical anginal equivalent given that the patient is also passing out associated with this and there could be some sort of cardiac component. Vital signs will be checked to assess for orthostatic hypertension given the patient' s significant ooziness as well particularly on standing. The patient has to this point had negative troponin, nonischemic EKG and negative echocardiogram from 5 days ago without any wall motion abnormalities or pulmonary hypertension. The patient has complaints of significant reflux and does have a history of this. It could be that the patient is aspirating small amounts, irritating his bronchi and causing a sensation of dyspnea, though this would likely be diagnosis of exclusion given no other significant abnormalities on his respiratory exam; however, to help evaluate this patient's pantoprazole will be increased. The patient has no ongoing systemic symptoms, if the patient 's cardiac evaluation during this hospitalization is negative, there are no abnormalities found on telemetry, the patient's next step would likely be pulmonary function test to look for some sort of restrictive perfusion deficit and for a pulmonary consultation. The patient does have a significant smoking history and thus this may be the initial development of chronic obstructive pulmonary disease or other chronic lung disease, so again the patient has no wheezing, and the patient's dyspnea is not worse with exertion. The patient has a negative D-dimer. It is very unlikely he has an acute pulmonary embolism , though further inpatient's evaluation if tests continuing to end up coming back negative CTA of the chest with premedication or a V/Q scan could be considered to look for pulmonary embolism as a cause of his symptoms, so again this is unlikely. The patient is only slightly anemic, this is unlikely to be the cause of his symptoms. The patient does not appear significantly volume depleted and is unlikely the sample is significantly hemoconcentrated. The patient does have a new diagnosis of minor thoracic aortic ectasia, though this is unlikely to be the cause of his pain. With the patient's dyspnea and back pain, it is unlikely the patient has any sort of thoracic aneurysm rupture, though this could also be further evaluated with a CTA of the chest with premedication if the patient has no other obvious cause of his symptoms. 2. Dizziness, possible ataxia. The patient has significant ooziness on standing particularly provoked with looking to the right. This could be related to benign paroxysmal positional vertigo, orthostatic hypotension. Orthostatic vital signs will be obtained. If the patient continued to have symptoms after rehydration and negative orthostatic vital signs, neurologic consultation and/or MRI of the brain should be considered, though the patient has no other neurologic deficits and given the chronic nature of this finding, it is unlikely the patient has had a posterior circulation cerebrovascular accident. The patient is anticoagulated with Xarelto at this time. 3. Paroxysmal atrial fibrillation. The patient is currently rhythm controlled. Continue the patient's Bystolic, flecainide, and Xarelto. 4. Irritable bowel syndrome. The patient is not having active GI symptoms. Continue the patient's Bentyl as needed. 5. Gastroesophageal reflux disease. As above, increase the patient's pantoprazole as a possibility for causing the patient's symptoms. 6. Back pain. The patient's back pain sounds mainly musculoskeletal. We will continue with Tylenol and tramadol. Further imaging of spine is not indicated at this time. 7. Disposition: The patient is admitted to observation to the hospital. 8. FEN: The patient will have a heart healthy diet, caffeine okay, and be n.p.o. after midnight. TIME SPENT: Approximately 60 minutes was spent on the admission of this patient , 30 of which was spent [id number] with the patient obtaining history and physical and discussing treatment plan. This plan was discussed with my attending, Dr. Cristal Fine, and she is in agreement. DAVID JIMENEZ [id number]/[facility] #: [id number] MTDAdri
[2019-10-21 14:13] LABS: Hepatitis C Antibody Negative (Negative)
[2019-10-21] MEDS: Acetaminophen TAB* 325 MG PO PRN ×2 (14:32→20:25)
[2019-10-21] MEDS ORDERED: Rivaroxaban TAB(*) 20 MG TAB PO SCH (17:00)
[2019-10-21] MEDS: Cyanocobalamin TAB* 500 MCG PO SCH (17:09)
[2019-10-21] MEDS: Folic Acid TAB* 1 MG PO SCH (17:09)
[2019-10-21] MEDS ORDERED: Lorazepam PYXIS KEY PRN (18:55)
[2019-10-21] MEDS ORDERED: LORazepam INJ* 2 MG/ML 1 ML VIAL IV PUSH PRN (18:55)
[2019-10-21] MEDS: Pantoprazole TAB * 40 MG TAB PO SCH (19:47)
[2019-10-21] MEDS: Flecainide* 50 MG TAB PO SCH (20:25)
[2019-10-21] MEDS ORDERED: CMCS: Nebivolol TAB (NF) 2.5 MG TAB PO SCH (21:00)
[2019-10-22] MEDS: traMADol TAB* 50 MG PO PRN ×2 (00:06→06:04)
[2019-10-22 06:33] LABS: ABS Eosinophils 0.2 10^3/ul (0-0.6); ABS Monocytes 0.6 10^3/ul (0-0.8); ABS Neutrophils 2.8 10^3/ul (1.5-7.7); Eosinophil % 3.7 %; Hematocrit 36 % (42-52); Hemoglobin 12.6 g/dL (14.0-18.0); Lymphocyte % 21.5 %; Mean Corpuscular HGB Conc 35 g/dL (31-36); Mean Corpuscular Hemoglobin 32 pg (27-31); Mean Corpuscular Volume 93 fL (80-94); Mean Platelet Volume 8.6 fL (7.4-10.4); Nucleated Red Blood Cells % 0.1; Platelet Count 157 10^3/uL (150-450); Red Cell Distribution Width 13 % (10-15); White Blood Count 4.5 10^3/uL (3.5-10.8)
[2019-10-22] MEDS: Acetaminophen TAB* 325 MG PO PRN (06:38)
[2019-10-22 07:00] LABS: BUN/Creatinine Ratio 12.2 (8-20); Calcium 8.3 mg/dL (8.6-10.3); EGFR African American 90.7 (>60); HDL Cholesterol 31.8 mg/dL; Magnesium 1.9 mg/dL (1.9-2.7); Potassium 3.9 mmol/L (3.5-5.0)
[2019-10-22] MEDS ORDERED: CMCS:Nebivolol TAB (NF) 2.5 MG TAB PO SCH (09:00)
[2019-10-22 09:04] LABS: C Reactive Protein 26.52 mg/L (<8.01)
[2019-10-22] MEDS: Pantoprazole TAB * 40 MG TAB PO SCH (10:18)
[2019-10-22] MEDS: Flecainide* 50 MG TAB PO SCH (10:18)
[2019-10-22] MEDS: Cyanocobalamin TAB* 500 MCG PO SCH (10:18)
[2019-10-22] MEDS: Folic Acid TAB* 1 MG PO SCH (10:18)
[2019-10-22 10:30] VITALS: BP 130/73
[2019-10-22] MEDS ORDERED: Regadenoson* 0.4 MG/5 ML SYRINGE ONE (11:14)
[2019-10-22] MEDS ORDERED: Aminophylline IV* 25 MG/ML 10 ML VIAL ONE (11:14)
--- NOTE | 2019-10-22 23:14 | DS ---
CC: Dr. Jain; Dr. Calix; Dr. Ch; Almita Bradley NP * DISCHARGE SUMMARY: DATE OF ADMISSION: 10/21/19 DATE OF DISCHARGE: 10/22/19 PRIMARY CARE PROVIDER: Dr. Jain. DISPOSITION AT DISCHARGE: Home. CONDITION ON DISCHARGE: Stable. DISCHARGE DIAGNOSES: 1. Recurrent syncopal episodes. 2. Upper respiratory infection symptoms for close to 1 month. SECONDARY DIAGNOSES: 1. Degenerative disk disease in the cervical spine. 2. Hypertension. 3. Paroxysmal atrial fibrillation. 4. Gastroesophageal reflux disease. 5. Lower back pain. 6. History of systemic mastocytosis that resolved. MEDICATIONS AT DISCHARGE: 1. Amlodipine 2.5 mg b.i.d. 2. Bentyl 10 mg on a p.r.n. basis. 3. Flecainide 50 mg b.i.d. 4. Bystolic 10 mg daily. 5. Protonix 40 mg daily. 6. Xarelto 20 mg daily. 7. Ultram 50 mg every 6 hours on a p.r.n. basis. 8. Vitamin B12 1000 mcg p.o. daily. LABORATORY DATA AND STUDIES PERFORMED DURING THE HOSPITAL STAY: Included: On 10/22/19, sodium of 135, potassium 3.9, chloride 107, carbon dioxide 24, BUN 12 , creatinine 0.98. Liver function tests were unremarkable at admission. Troponins remained 0 throughout the patient's hospital stay. C-reactive protein was 26.5. His cholesterol profile showed triglycerides of 103, cholesterol total of 136, LDL of 84, HDL 31.8. Vitamin B12 was 285 and TSH 3.05. The patient's D-dimer was below 200. The patient's hepatitis C antibody was negative. Nuclear medicine cardiac stress test documented on 10/22/19 showed low risk with impression showing large fixed defect of the inferior wall without wall motion abnormality, likely represented an artifact. Ejection fraction of 60% with no definitive reversible changes noted. Brain MRI, impression: "No acute intracranial abnormality. Mild chronic small vessel ischemic change is likely. Mild cerebral volume loss. Scattered mild to moderate paranasal sinus mucosal thickening." From review of the patient's medical records, the patient's echocardiogram obtained 10/16/19 showed mild concentric LVH with EF of 60% to 65% with normal diastolic filling pattern. Structurally normal tricuspid valve with mild regurgitation and mildly dilated ascending aorta at 3.8 cm. Comparing with echo from 2011, aorta diameter is newly dilated. The patient's lumbar spine x-ray obtained during the hospital stay from showed postsurgical changes and anterior and posterior L4 and L5 fusion with hardware appearing stable in position and no contraindications to MRI. Chest x-ray obtained on admission, impression: "No active cardiopulmonary disease is noted." From my review of the patient's CT of the lungs obtained on 10/10/19 showed bibasilar opacities of the lungs, nonspecific. That was obtained at Dr. Jain ' office. HOSPITALIZATION COURSE: Omar Freeman is a 74-year-old male with history of paroxysmal atrial fibrillation, who is usually in normal sinus rhythm. He stated that he has been having problems with upper respiratory infection for the past month or so. Initially, he was prescribed azithromycin, which he cannot take due to being on flecainide. Later on, he was prescribed doxycycline , but by the time he got it in mid month of September 2019, he stated that he felt at this point better and he decided not to take it. Nevertheless, since then he has been having occasional cough and he felt flashes of warmth going throughout his body. For the past couple of days, he had episodes of 2 syncope. The most recent one on the day of admission on 10/21/19 when he stood up to go the bathroom and he passed out before he reached the toilet. He stated that he was planning to go to urinate. He felt lightheaded and warm and passed out. He stated that he landed on the floor. Another time, he had a similar episode the day prior to that, at that point, he lowered himself to the bed. During his hospital stay, he had orthostatic blood pressures checked in the ED that was after he received his IV fluids and they were not positive for orthostatic hypotension, but the patient was noted to have symptoms of dizziness with standing up when in the ED. He was observed on residential monitor bed and continued to be in sinus rhythm. He received intravenous fluids and he felt improved. He underwent a treadmill cardiac stress test, which are as mentioned above with low risk. His MRI also did not show any abnormalities. After reviewing and talking with the patient, after reviewing medical records from Dr. Jain' office and Dr. Ch's office, I suspect that the patient probably has underlying prolonged infection of his lungs that put a toll on his body and now he is developing orthostasis. He stated that he felt out of sorts for the past 3 weeks ever since he had the upper respiratory infection. From the CAT scan on 10/10/19, he did have bibasilar infiltrates, but he never got treated with antibiotics because he felt he got better. Please also note that his also developed an infection and she is currently on azithromycin. At this point, the patient feels well enough to go home. My recommendation is to follow up with his primary care provider with a scheduled appointment on 10/29/19 at 10 a.m. The patient also has an appointment with Dr. Ch's nurse practitioner and I suspect it is going to be Almita Bradley on 10/25/19. At this point, I suspect the best idea is for the patient to finish the course of doxycycline for possibility of underlying lung infection. I also recommend for the patient to follow up with the nurse practitioner with Dr. Ch's office for possibly setting up long-term cardiac monitoring to evaluate it further. Please also note that the patient was mildly anemic and the anemia was normocytic. He denied any bright red blood per rectum or melenic stool, but he was noted to have vitamin B12 level of 285, which is in the lower limit of normal. At this point, I am prescribing vitamin B12 supplementation for home. PHYSICAL EXAM AT THE TIME OF DISCHARGE: Vital Signs: Blood pressure of 130/73 , heart rate of 51 and regular, respiratory rate 18, oxygen saturation 98% on room air, temperature 97.7. General: The patient is a pleasant 74-year-old male who is no acute distress. The patient is alert and oriented x3. HEENT: Head atraumatic, normocephalic. Eyes: Pupils equal and reactive to light and accommodation. Oropharynx clear. Mucosa moist. Neck: Supple. No JVD. No bruits bilaterally. Cardiovascular: Regular rate and rhythm. No murmur. Respiratory: Faint crackles at left lung base, otherwise clear. Abdomen: Soft , nontender. Bowel sounds present in all 4 quadrants. Extremities: There is no edema. Pulses +2 bilaterally. No clubbing or cyanosis. Neuro Evaluation: Speech clear. Cranial nerves II through XII grossly intact. Motor strength is 5/5 bilaterally. Please note this is a short summary of the patient's hospitalization. Please refer to further medical records for details. [id number]/[facility] #: [id number] [facility] MED[facility] CENTERAdri
== END 2019-10-22 16:30 | disposition home or self-care (01) ==
LOC: ED 08:17 → MEDTELE 10:15
PROVIDERS: ADMIT Hospitalist; ATTEND Internal Medicine
DX: R55 Syncope and collapse (principal); R42 Dizziness and giddiness; J06.9 Acute upper respiratory infection, unspecified; R06.02 Shortness of breath; M50.30 Other cervical disc degeneration, unspecified cervical region; I10 Essential (primary) hypertension; E78.00 Pure hypercholesterolemia, unspecified; I48.0 Paroxysmal atrial fibrillation; K21.9 Gastro-esophageal reflux disease without esophagitis; M54.5 Low back pain; Z79.01 Long term (current) use of anticoagulants; Z79.899 Other long term (current) drug therapy; Z87.891 Personal history of nicotine dependence
CPT/HCPCS: 36415; 70551; 71046; 72100; 78452; 80048; 80053; 80061; 82607; 83036; 83605; 83735; 83880; 84443; 84484; 85025; 85379; 86140; 86803; 93005; 96360; 96361; 99284; A9270-GY; A9502; G0378; J0280; J2785

== ENCOUNTER 2020-11-23 03:23 | Inpatient (IN) ==
[2020-11-23 06:55] LABS: ABS Monocytes 0.4 10^3/ul (0-0.8); ABS Neutrophils 2.6 10^3/ul (1.5-7.7); Hematocrit 38 % (42-52); Hemoglobin 12.7 g/dL (14.0-18.0); Lymphocyte % 39.7 %; Mean Corpuscular HGB Conc 34 g/dL (31-36); Mean Corpuscular Hemoglobin 31 pg (27-31); Mean Corpuscular Volume 92 fL (80-94); Mean Platelet Volume 8.6 fL (7.4-10.4); Platelet Count 207 10^3/uL (150-450); Red Blood Count 4.11 10^6 /uL (4.18-5.48); Red Cell Distribution Width 13 % (10-15)
[2020-11-23 07:11] LABS: ALT 9 U/L (7-52); AST 11 U/L (13-39); Albumin 3.9 g/dL (3.2-5.2); Albumin/Globulin Ratio 1.5 (1-3); Alkaline Phosphatase 52 U/L (34-104); Anion Gap 4 mmol/L (2-11); BUN/Creatinine Ratio 17.4 (8-20); Blood Urea Nitrogen 19 mg/dL (6-24); CO2 Carbon Dioxide 26 mmol/L (22-32); Calcium 9.4 mg/dL (8.6-10.3); Chloride 108 mmol/L (101-111); EGFR Non-African American 66.1 (>60); Globulin 2.6 g/dL (2-4); Glucose 103 mg/dL (70-100); Potassium 4.3 mmol/L (3.5-5.0); Sodium 138 mmol/L (135-145); Total Protein 6.5 g/dL (6.4-8.9)
[2020-11-23 07:15] LABS: Troponin I 0.11 ng/mL (<0.03)
[2020-11-23] MEDS ORDERED: Nitro 2% OINT (Nitroglycerin) 1 INCH/PAK TOPICAL ONE ×2 (09:02→19:41)
[2020-11-23 09:20] LABS: Activated Partial Thrombo Time 31.5 seconds (26.0-38.0); INR 1.42 (0.82-1.09)
[2020-11-23 09:24] LABS: Cholesterol 176 mg/dL; HDL Cholesterol 32.9 mg/dL; LDL Cholesterol 119 mg/dL; Triglycerides 122 mg/dL
[2020-11-23] MEDS ORDERED: PROPAFENONE 325 MG PO SCH (12:00)
[2020-11-23] MEDS: PROPAFENONE 325 MG PO SCH ×2 (12:00→22:32)
[2020-11-23] MEDS: NEBIVOLOL 2.5 MG PO SCH (12:03)
[2020-11-23 16:35] LABS: BUN/Creatinine Ratio 15.7 (8-20); EGFR African American 80.9 (>60); EGFR Non-African American 66.8 (>60)
[2020-11-23] MEDS: Al Hydrox/Mg Hydrox/Simet LIQ 30 ML UDC PO PRN (20:08)
[2020-11-24] MEDS ORDERED: Nitro Patch/OINT Remove PATCH TOPICAL SCH (02:00)
[2020-11-24] MEDS: Al Hydrox/Mg Hydrox/Simet LIQ 30 ML UDC PO PRN (06:35)
[2020-11-24] MEDS ORDERED: diPHENhydraMINE 25 mg TAB PO PRN (08:00)
[2020-11-24] MEDS: NEBIVOLOL 2.5 MG PO SCH (08:16)
[2020-11-24] MEDS: PROPAFENONE 325 MG PO SCH ×2 (08:17→20:25)
[2020-11-24] MEDS ORDERED: Iohexol 300 (CONTRAST) 10 ML SDV ONE (08:27)
[2020-11-24] MEDS ORDERED: Heparin 2 UNITS/ML 1000 mls 2,000 ML IV ONE (08:27)
[2020-11-24] MEDS ORDERED: Lidocaine 1% VIAL 10 MG/ML VIAL ONE (08:27)
[2020-11-24] MEDS ORDERED: VERAPAMIL 2.5 MG/ML 2 ML VIAL ** 5 mg/2 ml ONE (08:32)
[2020-11-24] MEDS ORDERED: Midazolam 5 mg/5 ml VIAL 1 mg/ml 5 ml VIAL (5 mg) ONE (08:32)
[2020-11-24] MEDS ORDERED: fentaNYL 100 mcg/2 ml 50 MCG/ML VIAL ONE (08:32)
[2020-11-24] MEDS ORDERED: Heparin 1,000 UNIT/ML 10 ml (10,000 UNITS) CATHLAB/DIALYSIS ONE (08:33)
[2020-11-24] MEDS ORDERED: Iohexol 350 (CONTRAST) 200 ML MDV IV ONE (08:33)
[2020-11-24] MEDS ORDERED: nitroGLYCERIN DRIP 25,000 MCG/250 ML BTL ONE (08:33)
[2020-11-24] MEDS ORDERED: Iodixanol 320 (CONTRAST) 100 ML SDV ONE ×2 (08:39→09:17)
[2020-11-24] MEDS ORDERED: PROPAFENONE 325 MG PO SCH (09:00)
[2020-11-24] MEDS ORDERED: Bivalirudin 250 MG VIAL ONE ×2 (09:11→09:45)
[2020-11-24] MEDS ORDERED: NS 0.9% 1000 ml BAG 1,000 ML IV SCH (10:45)
[2020-11-25 06:01] LABS: ABS Basophils 0.1 10^3/ul (0-0.2); ABS Lymphocytes 2.6 10^3/ul (1.0-4.8); ABS Monocytes 0.7 10^3/ul (0-0.8); ABS Neutrophils 5.9 10^3/ul (1.5-7.7); Hematocrit 35 % (42-52); Hemoglobin 11.7 g/dL (14.0-18.0); Lymphocyte % 27.9 %; Mean Corpuscular HGB Conc 34 g/dL (31-36); Mean Corpuscular Hemoglobin 31 pg (27-31); Mean Corpuscular Volume 92 fL (80-94); Mean Platelet Volume 8.3 fL (7.4-10.4); Platelet Count 199 10^3/uL (150-450); Red Blood Count 3.76 10^6 /uL (4.18-5.48); Red Cell Distribution Width 13 % (10-15); White Blood Count 9.3 10^3/uL (3.5-10.8)
[2020-11-25 06:22] LABS: BUN/Creatinine Ratio 24.5 (8-20); Calcium 8.5 mg/dL (8.6-10.3); EGFR African American 82.6 (>60); EGFR Non-African American 68.3 (>60); Potassium 4.1 mmol/L (3.5-5.0)
[2020-11-25] MEDS: NEBIVOLOL 2.5 MG PO SCH (08:30)
[2020-11-25] MEDS: PROPAFENONE 325 MG PO SCH (08:31)
[2020-11-25 11:47] VITALS: BP 122/74
== END 2020-11-25 11:45 | disposition home or self-care (01) | DRG 247 ==
LOC: ED 03:23 → MEDTELE 08:58 → ICU 11-24 11:32
PROVIDERS: ADMIT Hospitalist; ATTEND Internal Medicine